=== PATIENT | female | born 1955 | race Caucasian/White ===

== ENCOUNTER 2016-02-22 09:05 | Day surgery (SDC) | payer BC ==
--- NOTE | 2016-02-20 15:49 | HP ---
DATE OF SURGERY: 02/22/2016 HISTORY OF PRESENT ILLNESS: The patient is a 60 year-old white female with history of enlarged lymph node posterior stomach, in need of upper endoscopy as well as given the history of polyps also needing follow up screening colonoscopy. PAST MEDICAL HISTORY: Diabetes, non-Hodgkin's lymphoma, lupus, neuropathy in the past. PAST SURGICAL HISTORY: Tonsillectomy. Tubal. Hiatal hernia repair in the past. Splenectomy. Appendectomy. Cholecystectomy. Hysterectomy. Knee surgery. Salivary gland surgery. Tube in her ears. She had bladder tie up. She had bowel repair and rectal prolapse. She had heart cath with stent in the past. Cataract surgery. MEDICATIONS: Prilosec, Lantus, gabapentin, NovoLog, losartan, metoprolol, levetiracetam, levothyroxine. ALLERGIES: PENICILLIN. FAMILY HISTORY: Heart disease, diabetes, cancer. SOCIAL HISTORY: Half pack per day smoker, occasional alcohol use denies abuse. REVIEW OF SYSTEMS: Ten systems reviewed per admission assessment, pertinent for as noted above multiple medical problems. No current chest pain or palpitations. She had CT scan. She had chemo and radiation in the past. She has a history of enlarged node posterior stomach. The oncologist requested upper endoscopy for further evaluation. The patient does have some constipation and history of polyps in the past. Last colonoscopy was four or five years ago according to the patient. She is in need of follow up screening colonoscopy as well as upper endoscopy for evaluation. PHYSICAL EXAMINATION: GENERAL: No acute distress. HEENT: Sclerae nonicteric. NECK: No JVD. CHEST: Equal excursion, nonlabored breathing. CVS: Regular rate and rhythm. ABDOMEN: Soft, nontender. No peritoneal signs. EXTREMITIES: No significant edema. NEURO: Alert, moving extremities grossly symmetrically. No gross motor deficits noted. Again, she had CT done in the past that showed soft tissue mass posterior fundus stomach from prior exam. IMPRESSION: History of non-Hodgkin's lymphoma, soft tissue mass, adenopathy posterior fundus. The oncologist requested upper endoscopy for evaluation. She also has a history of colon polyps and in need of follow up screening colonoscopy as well. I feel she is a candidate. Risks and benefits explained in detail but not limited to bleeding or infection, risk of bowel injury or perforation possibly requiring open procedure, small risk of missed or nondiagnosis or incomplete exam possibly requiring barium enema, other studies or procedures, general risk of anesthesia or sedation, risk of bowel prep, postoperative risk of nausea, vomiting, cramping, aches or pains but not limited to. She understands and agrees to the planned procedure and will proceed with EGD and colonoscopy as an outpatient.
[~2016-02-22 09:05] MED LIST: DIPRIVAN 200 MG/20 ML IV ONE; Lactated Ringers 1,000 ML IV SCH; SUBLIMAZE 100 MCG/2 ML IV ONE; Versed 2 MG/2 ML Injection IV ONE
[2016-02-22] MEDS ORDERED: Lactated Ringers 1,000 ML IV ONE (09:23)
--- NOTE | 2016-02-22 11:53 | OP ---
SURGERY DATE: 02/22/16 SURGERY TIME: 952 PREOPERATIVE DIAGNOSIS: 1. NEED FOR SCREENING COLONOSCOPY. 2. HISTORY OF POLYPS IN THE PAST. 3. HISTORY OF NON-HODGKIN'S LYMPHOMA, NODE BEHIND THE STOMACH, NEED FOR FOLLOW-UP UPPER ENDOSCOPY. POSTOPERATIVE DIAGNOSIS: 1. MILD GASTRITIS. 2. VERY SMALL HIATAL HERNIA. 3. POLYPOID PROJECTION ESOPHAGUS AT 20 CM. 4. VERY POOR COLON PREP LIMITING THE EXAM. 5. DIVERTICULOSIS. 6. SMALL INTERNAL/EXTERNAL HEMORRHOIDS. PROCEDURE: 1. EGD with hot snare removal polypoid projection at 20 cm in esophagus removed with hot snare polypectomy. 2. Random cold biopsy fundus and body of the stomach. 3. Cold biopsy antrum to evaluate for Helicobacter pylori. 4. Colonoscopy to cecum. SURGEON: Dr. Fernandez Estrada. ANESTHESIA: MAC. ESTIMATED BLOOD LOSS: Minimal. INDICATIONS: As noted above. Risks and benefits explained in detail, but not limited to. Consent was obtained. DESCRIPTION OF PROCEDURE AND FINDINGS: The patient was taken to the endoscopy room. She denied any further questions. After official time-out, no disagreement in planned procedure. MAC anesthesia induced. Bite block positioned. Video gastroscope easily passed down the esophagus through the patent pylorus to the junction of the 2nd and 3rd portion of the duodenum. The duodenum and duodenal bulb were grossly unremarkable. No signs of any ulcers or other mucosal lesions. Back in the stomach, she had some mild gastritis. Cold biopsy taken of the antrum to evaluate for Helicobacter pylori. On retroflex, there was a small hiatal hernia, but the gastroesophageal junction very small. Otherwise, there was no obvious intraluminal mass where she had had the node in the stomach on scans in the past and random cold biopsy was taken of the posterior aspect of the fundus and body of the stomach. Good hemostasis was noted. The scope was straightened. Gastroesophageal junction was noted at about 39-40 cm. Z line was fairly crisp. No signs of any obvious masses or lesions in the distal esophagus. At 20 cm, there was a polypoid projection in the esophagus. Whether this was an inflammatory polyp or other lesion was unclear. It was felt that it needed to be removed. It was removed with brief bursts of cautery and the hot snare. This was sticking in the esophagus and required some irrigation with the scope oil processing technician. It was able to be sucked and passed off according to the staff. The patient did have a little bit of coughing during this point, but again, the irrigation was accomplished in the esophagus itself, not in the upper airway. The scope was withdrawn. The remainder of the esophagus/more proximal esophagus grossly unremarkable. Scope was withdrawn. The patient tolerated the procedure well. There were no immediate complications at this portion of the procedure. The patient had had brief low saturations then with the anesthesia and then remained adequate saturations the rest of the procedure. She was then repositioned in the left lateral position and then proceed with a colonoscopy. Digital rectal exam did not reveal any rectal masses. She did have some internal/external hemorrhoids. Video colonoscope inserted and passed up the poorly prepped colon. Slowly, carefully with external pressure, the scope was able to be passed down the transverse colon, ascending colon to the cecum. Appendiceal orifice and valve were visualized. Prep overall was very poor limiting the exam with a large amount of semi-solid and solid stool limiting the exam for potentially small lesions. This was suction irrigated as well as possible, but did very much limit the exam for potentially small lesions. On withdrawal of the scope, there were no signs of any large polyps, masses, or obstructing lesions. She did have some mild diverticulosis in left colon. Had some small internal/external hemorrhoids. Again, there were no signs of any large polyps, masses, or obstructing lesions, but the very poor prep did limit the exam for missing potentially small lesions. Will see her back in the office. Likely, she would benefit from follow-up colonoscopy in 2 or 3 years given the poor prep and no later than 3 years. Findings discussed with the family out in the waiting area.
[2016-02-22 12:06] VITALS: BP 132/76; PULSE 80; O2SAT 96
== END 2016-02-22 11:50 | disposition home or self-care (01) ==
LOC: SDC 09:05
PROVIDERS: ATTEND Surgery
PROC: 0DB58ZX Excision of Esophagus, Via Natural or Artificial Opening Endoscopic, Diagnostic (ICD-10-PCS; principal; 2016-02-22)
PROC: 0DB68ZX Excision of Stomach, Via Natural or Artificial Opening Endoscopic, Diagnostic (ICD-10-PCS; 2016-02-22)
PROC: 0DJD8ZZ Inspection of Lower Intestinal Tract, Via Natural or Artificial Opening Endoscopic (ICD-10-PCS; 2016-02-22)
DX: K29.70 Gastritis, unspecified, without bleeding (principal); K44.9 Diaphragmatic hernia without obstruction or gangrene; Z86.010 Personal history of colon polyps; Z85.72 Personal history of non-Hodgkin lymphomas; Z12.11 Encounter for screening for malignant neoplasm of colon; K22.8 Other specified diseases of esophagus; K57.90 Diverticulosis of intestine, part unspecified, without perforation or abscess without bleeding; K64.4 Residual hemorrhoidal skin tags; K64.8 Other hemorrhoids
CPT/HCPCS: 00740; 00810; 36415; 82962; 88305; 88312; J2250; J2704; J3010

== ENCOUNTER 2023-12-27 07:07 | Day surgery (SDC) | payer MEDICARE, OTHER ==
[2011-09-20 15:33] VITALS: BP 143/69
[2023-12-27] MEDS ORDERED: Sodium Chloride 0.9(Preservative Free) 10 ML IJ ONE (07:08)
[2023-12-27] MEDS ORDERED: Decadron 4 MG INJ IV ONE (07:08)
[2023-12-27] MEDS ORDERED: DIPRIVAN 200 MG/20 ML IV ONE (09:05)
--- NOTE | 2023-12-27 13:01 | XRAY ---
Indication: Left L4-S1 transforaminal REMY. Intraoperative fluoroscopy provided for 40 seconds. 4 digital spot image submitted for interpretation demonstrates posterior needle tips projecting over expected left L4 and L5 nerve roots. Small amount of contrast injected for needle tip placement. Correlate with intraoperative findings/report.
--- NOTE | 2023-12-27 14:47 | XRAY ---
40 seconds of fluoroscopy was used in surgery for a left L4-S1 transforaminal REMY.
== END 2023-12-27 09:43 | disposition home or self-care (01) ==
LOC: SDC-PAIN 07:07
PROVIDERS: ATTEND Psychiatry & Neurology Pain Medicine
DX: M54.16 Radiculopathy, lumbar region (principal); E11.9 Type 2 diabetes mellitus without complications
CPT/HCPCS: 62323; 64483; 64484; 72100; 77003; 82947; J1100; J2704; Q9966